=== PATIENT | male | born 1995 | race Caucasian/White ===

== ENCOUNTER 2017-06-15 13:24 | Emergency (ER) | payer MEDICAID ==
[2017-06-15] MEDS: HYDROCODONE/APAP (5/325) TAB PO (14:18)
== END 2017-06-15 15:20 | disposition home or self-care (01) ==
LOC: FTE 13:24
DX: S39.92XA Unspecified injury of lower back, initial encounter (principal); V23.4XXA Motorcycle driver injured in collision with car, pick-up truck or van in traffic accident, initial encounter
CPT/HCPCS: 72100; 99283-25